=== PATIENT | male | born 1960 | race Caucasian/White ===

== ENCOUNTER 2017-11-10 11:54 | Emergency (ER) | payer OTHER ==
[2017-11-10 12:03] VITALS: TEMP 99.5
[2017-11-10 12:47] LABS: PLATELET COUNT 190 10^3/uL (150-400)
--- NOTE | 2017-11-10 12:53 | EDPHY ---
HPI/HX/ROS/PE/MDM Narrative: CHIEF COMPLAINT: Right leg redness and swelling HPI: The patient is a 56 y/o male with a history of gout complaining of swelling and redness in his lower right leg, onset , 3 days ago. He first noticed the swelling after taking off a knee brace at work. Initially, he thought this was a gout flare up so he took his gout medication, without relief of his symptoms. Within the last 24 hours the swelling has increased and his leg has now become red and painful. Yesterday he also had chills. No fever, chest pain, shortness of breath, abdominal pain, paresthesias, numbness, recent illness. REVIEW OF SYSTEMS: Aside from elements discussed in the HPI, a comprehensive 10-point review of systems was reviewed and is negative. PMH: Gout, right ankle surgery, left knee surgery with subsequent DVT, hernias SOCIAL HISTORY: Lives in [place], works for [employer], single PHYSICAL EXAM: General: Patient is alert, in no acute distress. ENT: Eyes are normal to inspection. ENT inspection normal. Neck: Normal inspection. Full range of motion. Respiratory: No respiratory distress. Breath sounds normal bilaterally. Cardiovascular: Regular rate and rhythm. Strong peripheral pulses. Normal cap refill. Abdomen: The abdomen is nontender to palpation. There are no peritoneal signs. There are normal bowel sounds. Back: Normal to inspection. No tenderness to palpation. Skin: Normal color. No rash. Warm and dry. Extremities: Right le+ edema from mid calf down with tenderness and erythema. Otherwise normal appearance. Full range of motion. Neuro: Oriented x3. Normal motor function. Normal sensory function. ED Course: 1315: Reviewed patient's right ankle x-ray; no fracture or dislocation. No hardware in place. 1345: Spoke with Dr. Guevara, radiologist, there is no DVT in the right leg US. 1gm IV Invanz administered as patient's symptoms are consistent with cellulitis. 1352: Reassessed patient and discussed imaging and laboratory findings. I have marked the area of cellulitis. He will need to return to the ED tomorrow to re- check the redness and swelling; and for a possible additional dose of antibiotics. Return precautions provided; patient is comfortable with this plan. MDM: This patient presents with signs and sx of RLE cellulitis. He declines admission to the hospital. US and XR are negative for signs of DVT, abscess, osteomyelitis, fracture or soft tissue gas. The patient is afebrile and hemodynamically stable. I will treat him with Invanz and Keflex and he agrees to return to the ED tomorrow for re-evaluation and possible repeat IV antibiotics if necessary. - Data Points Imaging Results: Imaging Impressions Ankle X-Ray 11/10/17 12:59 Impression: 1. No evidence of osteomyelitis or fracture. 2. 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 Imaging: Discussed imaging studies w/ at home independent call center agent Radiologist, I viewed and interpreted images myself Laboratory Results: Laboratory Results 11/10/17 12:35 11/10/17 12:35 11/10/17 11/10/17 12:35 12:35 WBC 14.13 10^3/uL H 10^3/uL (3.80-9.50) RBC 4.97 10^6/uL 10^6/uL (4.40-6.38) Hgb 15.8 g/dL g/dL (13.7-17.5) Hct 44.4 % % (40.0-51.0) MCV 89.3 fL fL (81.5-99.8) MCH 31.8 pg pg (27.9-34.1) MCHC 35.6 g/dL g/dL (32.4-36.7) RDW 12.0 % % (11.5-15.2) Plt Count 190 10^3/uL 10^3/uL (150-400) MPV 9.1 fL fL (8.7-11.7) Neut % (Auto) 82.0 % H % (39.3-74.2) Lymph % (Auto) 8.1 % L % (15.0-45.0) Hendricks % (Auto) 8.7 % % (4.5-13.0) Eos % (Auto) 0.1 % L % (0.6-7.6) Baso % (Auto) 0.4 % % (0.3-1.7) Nucleat RBC Rel Count 0.0 % % (0.0-0.2) Absolute Neuts (auto) 11.57 10^3/uL H 10^3/uL (1.70-6.50) Absolute Lymphs (auto) 1.15 10^3/uL 10^3/uL (1.00-3.00) Absolute Monos (auto) 1.23 10^3/uL H 10^3/uL (0.30-0.80) Absolute Eos (auto) 0.02 10^3/uL L 10^3/uL (0.03-0.40) Absolute Basos (auto) 0.06 10^3/uL 10^3/uL (0.02-0.10) Absolute Nucleated RBC 0.00 10^3/uL 10^3/uL (0-0.01) Immature Gran % 0.7 % % (0.0-1.1) Immature Gran # 0.10 10^3/uL 10^3/uL (0.00-0.10) Sodium 138 mEq/L mEq/L (135-145) Potassium 4.3 mEq/L mEq/L (3.5-5.2) Chloride 103 mEq/L mEq/L (97-110) Carbon Dioxide 20 mEq/l L mEq/l (22-31) Anion Gap 15 mEq/L mEq/L (8-16) BUN 26 mg/dL H mg/dL (7-23) Creatinine 0.8 mg/dL mg/dL (0.7-1.3) Estimated GFR > 60 Glucose 125 mg/dL H mg/dL (70-100) Calcium 9.0 mg/dL mg/dL (8.5-10.4) Medications Given: Discontinued Medications Ertapenem (Invanz) 1 gm IVP EDNOW ONE PRN Reason: Protocol Stop: 11/10/17 13:50 Last Admin: 11/10/17 13:57 Dose: 1 gm Morphine Sulfate (Morphine) 4 mg IVP EDNOW ONE Stop: 11/10/17 13:02 Last Admin: 11/10/17 13:11 Dose: 4 mg General Time Seen by Provider: 11/10/17 12:52 Initial Vital Signs: Initial Vital Signs Temperature (C) 37.5 C 11/10/17 12:00 Heart Rate 96 11/10/17 12:00 Respiratory Rate 18 11/10/17 12:00 Blood Pressure 116/79 11/10/17 12:00 O2 Sat (%) 95 11/10/17 12:00 O2 Delivery Mode Room Air Allergies/Adverse Reactions: ketorolac Allergy (Verified 11/19/15 11:35) levofloxacin Allergy (Verified 11/19/15 11:35) Home Medications: Medication Instructions Recorded Cephalexin [Keflex] 500 mg PO Q6H #28 cap 11/10/17 Colchicine 11/10/17 oxyCODONE/APAP 5/325 [Percocet 1 - 2 tab PO Q4H PRN #10 tab 11/10/17 5/325 (*)] Departure - Departure Disposition: Home, Routine, Self-Care Clinical Impression: Cellulitis Qualifiers: Site of cellulitis: extremity Site of cellulitis of extremity: lower extremity Laterality: right Qualified Code(s): L03.115 - Cellulitis of right lower limb Condition: Good Instructions: Cellulitis (ED) Additional Instructions: Take Keflex as prescribed. Take Percocet as prescribed for severe pain. Return to the Emergency Department immediately if the pain or redness worsens. Return to the Emergency Department tomorrow to recheck your leg and for a possible additional dose of antibiotics. Referrals: Martina Ortiz MD [[facility] Primary Care Provider] - As per Instructions [facility],. [Clinic] - As per Instructions Prescriptions: Cephalexin [Keflex] 500 mg PO Q6H #28 cap oxyCODONE/APAP 5/325 [Percocet 5/325 (*)] 1 - 2 tab PO Q4H PRN #10 tab PRN Reason: Pain, Severe Report Scribed for: Andrew Perdomo Report Scribed by: Sindhu Russo Date of Report: 11/10/17 Time of Report: 12:53 Physician Review and Approval Statement: Portions of this note were transcribed by an ED scribe. I personally performed the history, physical exam, and medical decision making; and confirm the accuracy of the information in the transcribed note.
[2017-11-10] MEDS ORDERED: ERTAPENEM 1 GM VIAL IVP ONE (13:49)
[2017-11-10 13:59] VITALS: BP 106/72; PULSE 93; RESP 16; O2SAT 97
== END 2017-11-10 15:02 | disposition home or self-care (01) ==
DX: L03.115 Cellulitis of right lower limb (principal)
CPT/HCPCS: 96374; J1335; J2270

== ENCOUNTER 2017-11-11 13:08 | Emergency (ER) | payer OTHER ==
--- NOTE | 2017-11-11 14:06 | EDPHY ---
H & P Time Seen by Provider: 11/11/17 13:55 HPI/ROS: CHIEF COMPLAINT: Recheck right lower extremity cellulitis HISTORY OF PRESENT ILLNESS: 56-year-old male history of gout, seen emergency department yesterday for erythema, edema to the right lower extremity had negative x-ray and ultrasound. He was treated with a dose of Invanz and started on oral Keflex told to return to the ER for recheck in 24 hr. He states that he is feeling significantly improved. The pain is more of an "annoyance" than significant pain. He is able to bear weight. He has been compliant with his Keflex. He denies fever chills. Denies flu-like symptoms. PHYSICAL EXAM (Prior to examination, patient consented to physical exam, hands were washed and my usual and customary physical exam procedures followed) 1) GENERAL: Well-developed, well-nourished, alert and oriented. Appears to be in no acute distress. Observed weight-bearing. 2) HEAD: Normocephalic 3) HEENT: sclera anicteric 4) LUNGS: Breathing comfortably. 5) MUSCULOSKELETAL: Right lower extremity: The extent of erythema at last emergency department visit was outlined and there has been significant decrease in this erythema. He has soft compartments with DP PT pulses present and brisk. No inguinal adenopathy. No lymphangitic streaking. No crepitus. Smoking Status: Never smoked Constitutional: Initial Vital Signs Temperature (C) 36.8 C 11/11/17 13:09 Heart Rate 68 11/11/17 13:09 Respiratory Rate 14 11/11/17 13:09 Blood Pressure 101/79 11/11/17 13:09 O2 Sat (%) 98 11/11/17 13:09 O2 Delivery Mode Room Air Allergies/Adverse Reactions: ketorolac Allergy (Verified 11/11/17 13:08) levofloxacin Allergy (Verified 11/11/17 13:08) Home Medications: Medication Instructions Recorded Cephalexin [Keflex] 500 mg PO Q6H #28 cap 11/10/17 Colchicine 11/10/17 oxyCODONE/APAP 5/325 [Percocet 1 - 2 tab PO Q4H PRN #10 tab 11/10/17 5/325 (*)] MDM/Departure - MDM ED Course/Re-evaluation: 2:05 p.m.: This patient is responding well to antibiotics. He has had significant decrease in his erythema, he is symptomatic we better as well. At this time I do not think that a repeat dose of IV antibiotics is definitively indicated. I recommend continue oral antibiotics. Recommend elevation. Recommend follow up in 2 days with his primary care provider at [facility]. He feels comfortable with this plan. Usual and customary wound precautions and instructions provided. Care of patient under supervision of primary supervising physician Dr Mcwilliams . - Depart Disposition: Home, Routine, Self-Care Clinical Impression: Cellulitis of right lower extremity Condition: Good Instructions: Cellulitis (ED) Additional Instructions: Return to the ER if you develop redness, swelling, discharge, warmth to the wound, red streaks going up your leg, or any other symptoms that concern you. Referrals: [facility] ,. [[facility] Groups for Call Sched] - 1-2 days without fail
[2017-11-11 14:39] VITALS: BP 112/78; PULSE 80; RESP 18; TEMP 98.6; O2SAT 95
== END 2017-11-11 14:39 | disposition home or self-care (01) ==
DX: L03.115 Cellulitis of right lower limb (principal)

== ENCOUNTER 2017-11-15 19:56 | Inpatient (IN) | payer SELFPAY ==
--- NOTE | 2017-11-15 20:17 | EDPHY ---
H & P Stated Complaint: cellulitis Time Seen by Provider: 11/15/17 20:10 - Personal History Current Tetanus/Diphtheria Vaccine: Yes Current Tetanus Diphtheria and Acellular Pertussis (TDAP): Yes - Medical/Surgical History Hx Asthma: No Hx Chronic Respiratory Disease: No Hx Diabetes: No Hx Cardiac Disease: No Hx Renal Disease: No Hx Cirrhosis: No Hx Alcoholism: No Hx HIV/AIDS: No Hx Splenectomy or Spleen Trauma: No Other PMH: cellulitis, DVT left leg, gout, Left knee surg, 2 previous hernia's - Social History Smoking Status: Never smoked Constitutional: Initial Vital Signs Temperature (C) 36.3 C 11/15/17 19:59 Heart Rate 89 11/15/17 19:59 Respiratory Rate 16 11/15/17 19:59 Blood Pressure 136/85 H 11/15/17 19:59 O2 Sat (%) 96 11/15/17 19:59 O2 Delivery Mode Room Air Allergies/Adverse Reactions: ketorolac Allergy (Verified 11/11/17 13:08) levofloxacin Allergy (Verified 11/11/17 13:08) Home Medications: Medication Instructions Recorded Cephalexin [Keflex] 500 mg PO Q6H #28 cap 11/10/17 Herbals/Supplements -Info Only 1 ea PO DAILY 11/15/17 Multivitamins [Multivitamin (*)] 1 each PO DAILY 11/15/17 Naproxen Sodium [Aleve 220 MG (*)] 220 mg PO DAILY PRN 11/15/17 [place]-3 Fatty Acids [Fish Oil 1000 1,000 mg PO DAILY 11/15/17 mg (*)] Medical Decision Making ED Course/Re-evaluation: CHIEF COMPLAINT: Right leg cellulitis HISTORY OF PRESENT ILLNESS: This patient is a 56 y/o male with history of gout presenting for evaluation of worsening right lower extremity cellulitis. He was evaluated Saturday, five days ago, for similar symptoms. US was negative for DVT. He was discharged with Keflex following treatment with IV antibiotics. On Saturday and Saturday, the patient was seeing some improvement. Yesterday, the erythema began to spread again, and today his right leg is very red, swollen and painful. He presents for evaluation and likely admission as he is concerned that he has failed outpatient therapy. No fever, chills, vomiting, diarrhea, weakness, urinary complaints, or other associated symptoms. Patient denies history of diabetes. No recent trauma to the area. REVIEW OF SYSTEMS: A 10 point review of systems was performed and is negative with the exception of the elements mentioned in the history of present illness. PHYSICAL EXAM: HR, BP, O2 Sat, RR. Temp noted General Appearance: Alert, well hydrated, appropriate, and non-toxic appearing. Head: Atraumatic without scalp tenderness or obvious injury Eyes: Pupils equal, round, reactive to light and accommodation, EOMI, no trauma , no injection. Nose: Atraumatic. Throat: There is no erythema or exudates, no lesions, normal tonsils, mucus membranes moist. Neck: Supple, nontender, no lymphadenopathy. Respiratory: No retractions, no distress, no wheezes, and no accessory muscle use. Lungs are clear to auscultation bilaterally. Cardiovascular: Regular rate and rhythm, no murmurs, rubs, or gallops. Bilateral carotid, radial, dorsalis pedis, and posterior tibial pulses intact. Good capillary refill all extremities. Gastrointestinal: Abdomen is soft, nontender, non-distended, no masses, no rebound, no guarding, no peritoneal signs. Musculoskeletal: Swelling, fluctuance, and erythema to right lateral ankle. 2+ edema from mid calf down with tenderness and erythema. Normal active ROM of all extremities.. Neurological: Alert, appropriate, and interactive. The patient has normal DTRs and non-focal cranial nerves, motor, sensory, and cerebellar exam. Skin: No rashes, good turgor, no nodules on palpation. Past medical history: Cellulitis, DVT left leg, Gout. Past surgical history: Left knee surgery. Two previous hernias Family history: Noncontributory. Social history: Lives in [place], works for [employer], single DIFFERENTIAL DIAGNOSIS: Includes but not limited to cellulitis, DVT, abscess, osteomyelitis, fracture or soft tissue gas. MEDICAL DECISION MAKIN56 y/o male presents with cellulitic right leg. He is afebrile. Patient had been evaluated twice in the past week for similar symptoms, given IV antibiotics and placed on Keflex. He has been compliant with these medications, but symptoms have worsened. Patient failed outpatient treatment. Plan to admit for cellulitis. Plan for labs including CBC, chemistries. Plan to administer 1gm IV Vancomycin. 20:22 Dr. Gómez accepts admission for cellulitis. - Data Points Medications Given: Vancomycin HCl 1 gm/ Sodium (Chloride) 250 mls @ 250 mls/hr IV EDNOW ONE Stop: 11/15/17 21:59 Last Admin: 11/15/17 20:46 Dose: 250 mls Departure - Departure Disposition: [facility] Inpatient Acute Clinical Impression: Cellulitis Qualifiers: Site of cellulitis: extremity Site of cellulitis of extremity: lower extremity Laterality: right Qualified Code(s): L03.115 - Cellulitis of right lower limb Condition: Fair
[2017-11-15] MEDS ORDERED: VANCOMYCIN HCL/NORMAL SALINE 250 ML IV ONE (20:23)
[2017-11-15 20:41] LABS: PLATELET COUNT 347 10^3/uL (150-400)
[2017-11-15] MEDS ORDERED: VANCOMYCIN 1 GM in NS 250 ML IV ONE (21:00)
[2017-11-15] MEDS ORDERED: ONDANSETRON 4 MG/2 ML VIAL IVP PRN (21:03)
[2017-11-15] MEDS ORDERED: ONDANSETRON DISINTEGRATING 4 MG TAB PO PRN (21:03)
[2017-11-15] MEDS: ACETAMINOPHEN 325 MG TAB PO PRN (22:02)
[2017-11-15] MEDS: oxyCODONE IR 5 MG TAB PO PRN (22:03)
--- NOTE | 2017-11-15 22:12 | GHP ---
[f rep st] HISTORY AND PHYSICAL DATE OF ADMISSION: 11/15/2017 CHIEF COMPLAINT: Cellulitis. HISTORY OF PRESENT ILLNESS: This is a 56-year-old man who was seen in the ED a few days ago for the same. He is given a dose of vancomycin and sent home on Keflex. He thought at first that his infect ion was doing better. However, it got much worse today. It is very painful. He noticed some pus co herber out of it today. He has had an infection like this before in his elbow. He tells me that teodoro morales was never identified. PAST MEDICAL/SURGICAL HISTORY: Gout. MEDICATIONS: No medications. ALLERGIES: Ketorolac and Levofloxacin. FAMILY HISTORY: Remarkable for alcoholism. SOCIAL HISTORY: He quit drinking 14 years ago. Quit smoking 10 years ago. REVIEW OF SYSTEMS: A 10-point review of systems is conducted and is negative except per HPI. PHYSICAL EXAMINATION: VITAL SIGNS: Blood pressure 126/80, heart rate 76, respiratory rate 16, satur ating 98% on room air. Temperature is 36.8. GENERAL: The patient is a pleasant man who is resting comfortably, in no acute distress. HEENT: Normocephalic, atraumatic. CARDIOVASCULAR: Regular rate and rhythm. No murmurs, rubs, or gallops. PULMONARY: Lungs clear to auscultation bilaterally. AB DOMEN: Soft, nontender, nondistended. SKIN: No rash. : No Sheriff. NEUROLOGIC: Alert and orien gabriel x3. He is moving all extremities. PSYCHIATRIC: Normal mood and affect. EXTREMITIES: Right lo wer extremity has significant erythema. It is warm, quite tender to palpation. I do not really appr eciate any areas of fluctuance. There are a few mild scabs. There is no streaking beyond the mid sh in. LYMPHS: He has no inguinal lymphadenopathy. LABORATORY: White count is 10.4. Basic metabolic panel shows a bicarb of 20. DATA: 1. I discussed with Dr. Araujo. We will admit to med/surg. 2. I reviewed his extremity venous study. This is negative for DVT. 3. I reviewed his ankle x-ray. This shows no evidence of osteomyelitis or fracture. He does have o steoarthritis. IMPRESSION PLAN: 1. Cellulitis: High risk. Needs inpatient admission. Given the purulence he saw, we will treat wi vancomycin. Blood cultures were not sent prior to antibiotics. Watch him closely. Clinically, p otentially an abscess will declare itself when the erythema and edema resolve. 2. Gout: No acute flare. /[id number]/MODL
--- NOTE | 2017-11-16 01:52 | PDMN ---
Medical Necessity Medical necessity: C/M review: Patient meeets INPT criteria undr MCG M-70 Cellulitis: Acute and persistent worsening right lower extremity cellulitis - erythema, pain, patient reports pus coming out of RLE requiring ongoing IV Vancomycin Q 12 hrs., comorbid 11/11/2017 ED visit for RLE cellulitis treated with IV Vancomycin in ED, outpt. oral Keflex, failed outpt. therapy, history of gout. MD anticipates > 2 MN LOS for ongoing med nec for eval and TX of above.
[2017-11-16] MEDS: oxyCODONE IR 5 MG TAB PO PRN ×3 (04:54→21:55)
[2017-11-16 05:23] LABS: PLATELET COUNT 293 10^3/uL (150-400)
[2017-11-16] MEDS: VANCOMYCIN 1.25 GM in NS 250 ML IV SCH ×2 (06:26→19:36)
--- NOTE | 2017-11-16 10:13 | ASMTCMCOM ---
CM Note CM Note Notes: Patient admitted after failing outpatient treatment for RLE cellulitis. He was seen in the [facility] ED twice last week and given both IV and oral antibiotics. 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 I do not anticipate any discharge needs, but Case Management available if any arise. Date Signed: 11/16/2017 10:12 AM Electronically Signed By:Faith Galicia RN
[2017-11-16] MEDS: ACETAMINOPHEN 325 MG TAB PO PRN ×2 (12:43→21:55)
--- NOTE | 2017-11-16 16:14 | HOSPPROG ---
Hospitalist Progress Note Assessment/Plan: 56 yo M with cellulitis failing OP management # RLE cellulitis: started on IV vanco with minimal improvement overnight, has failed op management that included IV and oral abx through ER. Ankle XR w/o clear osteo on personal review, US showing no DVT. Ankle edema remains significant with area of "bogginess" concerning for underlying fluid collection though lack of significant ttp or erythema argues against abscess--possibly just dependent edema. Will monitor, will ask ID to consult, low threshold for further imaging if not improving # hx of gout: no acute flare # leukocytosis: in setting of above, resolved # IP status Patient new to my care. Old records reviewed/summarized as above. Subjective: no acute overnight events, patient states swelling improved so long as he is in bed, but just as bad as before when standing Objective: Vital Signs Temp Pulse Resp BP Pulse Ox 36.4 C 58 L 16 116/74 96 11/16/17 07:08 11/16/17 07:08 11/16/17 07:08 11/16/17 07:08 11/16/17 07:08 Laboratory Results 11/16/17 04:40 11/16/17 04:40 11/15/17 11/16/17 11/17/17 05:59 05:59 05:59 Intake Total 500 Output Total 350 Balance 150 awake alert nad anicteric op clear rrr no mrg cta b soft nt nd rle with erythema to just below knee, significant edema in foot/ankle especially lateral malleolar region warm dry well perfused oriented appropriate ICD10 Worksheet Patient Problems: Problems Problem Status Onset Cellulitis Acute
[2017-11-17] MEDS: oxyCODONE IR 5 MG TAB PO PRN ×2 (06:01→22:01)
[2017-11-17] MEDS: ACETAMINOPHEN 325 MG TAB PO PRN ×3 (06:02→22:01)
[2017-11-17] MEDS: VANCOMYCIN 1.25 GM in NS 250 ML IV SCH (07:27)
[2017-11-17] MEDS ORDERED: ceFAZolin 2 GM/DEXTROSE 100 ML IV SCH (14:00)
--- NOTE | 2017-11-17 14:53 | GCON ---
[f rep st] CONSULTATION DATE OF CONSULTATION: 11/17/2017 REQUESTING PHYSICIAN: Marjan Becker MD. REASON FOR CONSULTATION: Right lower extremity cellulitis. HISTORY OF PRESENT ILLNESS: The patient is a 56-year-old male with a past medical history of gout, w ho I am asked to see in consultation for right lower extremity cellulitis. The patient describes dev eloping erythema and tenderness over the anterior spencer approximately 10 days ago. 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 He does not recall any preceding injury to the area. He subs equently was seen in the emergency department on 11/10/2017 at which point in time he had an ultrasou nd performed which showed no evidence of DVT. He was given 1 g of ertapenem and discharged home for continued therapy with cephalexin. The following day, he was seen in the ER for a recheck at which p oint in time, it was recommended that he continue his oral antibiotic therapy. Despite continued cep halexin, he felt that his symptoms were worsening, prompting return to the hospital on 11/15/2017. A t that point in time he was admitted for right lower extremity cellulitis. He admission history and physical describes that he had purulent discharge from the lateral aspect of his lower leg; when I qu estioned him about this today, he said this was a clear yellow liquid rather than sounding as if comp atible with pus. The patient has been started on vancomycin and has had decrease in swelling over th e anterior spencer, but has noted persistent and prominent swelling of the right ankle. He has signific ant tenderness with weightbearing. He describes having subjective fever and chills initially, but th yonatan have resolved. He has not experienced nausea, vomiting or diarrhea. No past medical history of MRSA or skin and soft tissue infection. He did have a prior surgery in the right ankle many years ag o and does not have any indwelling hardware. Given the above findings, I am now asked to assist in h is ongoing management. PAST MEDICAL HISTORY: Gout. PAST SURGICAL HISTORY: Right ankle surgery, hernia repair. CURRENT MEDICATIONS: Vancomycin 1.25 g IV q.12 hours, morphine as needed, Oxy IR as needed. ALLERGIES: Levofloxacin or Ketoralac associated with anaphylaxis; both of these had been administere d around the time of an anaphylactic reaction, although patient feels this is most likely from the le vofloxacin. Of note, he is able to tolerate indomethacin and ibuprofen without difficulty. SOCIAL HISTORY: Patient quit smoking and drinking alcohol many years ago. No drug use. 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 No recent travel. There are pet cats at home. FAMILY HISTORY: Diabetes mellitus, skin cancer. REVIEW OF SYSTEMS: Outside that noted in the HPI, remainder of a 10-system review is unremarkable. PHYSICAL EXAMINATION: VITAL SIGNS: Temperature 36.5, heart rate 70, respiratory rate 19, blood pres sure 109/73, oxygen saturation 96% on room air. GENERAL: Patient is well-nourished, well-developed, in no acute distress. He appears nontoxic. HEENT: There is no scleral icterus, conjunctival injec tion, or conjunctival petechiae. Oropharynx is clear without lesions. Mucous membranes are moist. There is no nasal discharge. There is no tenderness over the sinuses. NECK: Supple without palpabl e lymphadenopathy or thyromegaly. CHEST: Clear to auscultation bilaterally without adventitious blank nds. Respiratory effort is normal. CARDIOVASCULAR: Regular rate and rhythm without murmurs, gallop s, or rubs. ABDOMEN: Soft, nontender, nondistended. There is no palpable organomegaly. Bowel soun ds are present. MUSCULOSKELETAL: The right lower extremity shows erythema with wrinkling of skin ov er the anterior spencer with some small hemorrhagic foci; there is some desquamation of skin beginning m ore medially without any expressible drainage or palpable fluctuance. The right lateral malleolar re gion has significant pitting edema which is less prominent over the medial malleolar area. There is no significant irritability with range of motion of the joint. SKIN: See musculoskeletal exam. The re is no tenia pedis present. No stigmata of endocarditis. The skin is warm and dry to touch. NEUR OLOGIC: Patient is alert and interacts appropriately with examiner. Cranial nerves 2-12 are grossly intact. Sensation is grossly intact. Muscle tone and bulk are normal. LYMPHATICS: No cervical or supraclavicular nodes. There is no lymphangitis or adenopathy in the right inguinal area. LABORATORY DATA: White blood cell count 9.1, hematocrit 37.6, platelets 293, neutrophils 39%, lympho cytes 37% (had 36% bands yesterday), serum creatinine 0.6, vancomycin trough 9.8. No culture data is available. Ultrasound of the lower extremity on 11/10/2017 shows no evidence of DVT. Ankle x-ray o n 11/10/2017 shows no fracture. IMPRESSION: 1. Right lower extremity cellulitis: Appearance is most suggestive of beta-hemolytic streptococci a s etiology. Description of purulence with further clarification sounds is if serous fluid had draine d rather than purulent material. No evidence of purulence or abscess on exam. Given this finding, w ill change vancomycin to cefazolin. Continue lower extremity elevation. 2. Ankle edema: This is either sympathetic to patient's cellulitis or may have element of superimpo sed gout as an explanation although ankle is not irritable to palpation. Do not think this represent s abscess or septic arthritis. RECOMMENDATIONS: 1. Ancef 2 g IV q.8 hours. 2. Discontinue vancomycin. 3. Continue leg elevation. 4. Indomethacin 50 mg orally 3 times per day. Thank you for this consultation. We will continue to follow the patient with you. /[id number]/MODL
[2017-11-17] MEDS: INDOMETHACIN 25 MG CAP PO SCH (17:17)
--- NOTE | 2017-11-17 19:11 | HOSPPROG ---
Hospitalist Progress Note Assessment/Plan: 56 yo M with cellulitis failing OP management # RLE cellulitis:appreciate ID consult, transitioning to ancef given appearance most c/w B-hemolytic strep. Ankle remains very edematous and boggy, perhaps related to gout as per Id however not very TTP # hx of gout: as above, ? if ankle swelling related to gout, starting indocin # leukocytosis: in setting of above, resolved # IP status Care plan reviewed with Dr. Noble as above. Subjective: no signficant overnight events, patient notes his leg feels a bit better, looks less red, no other issues overnight Objective: Vital Signs Temp Pulse Resp BP Pulse Ox 36.5 C 80 16 110/82 H 93 11/17/17 16:00 11/17/17 16:00 11/17/17 16:00 11/17/17 16:00 11/17/17 16:00 Laboratory Results 11/16/17 04:40 11/16/17 04:40 11/16/17 11/17/17 11/18/17 05:59 05:59 05:59 Intake Total 500 2250 1780 Output Total 350 400 Balance 150 1850 1780 awake alert nad anicteric op clear rrr no mrg cta b soft nt nd rle with erythema to just below knee, significant edema in foot/ankle especially lateral malleolar region warm dry well perfused oriented appropriate - Time Spent With Patient Time Spent with Patient: greater than 35 minutes Time Spent with Patient: Greater than 35 minutes spent on this patients care, greater than 50% of time spent counseling, educating, and coordinating care regarding the above mentioned plan. ICD10 Worksheet Patient Problems: Problems Problem Status Onset Cellulitis Acute
[2017-11-17] MEDS: ceFAZolin 2 GM/SWFI 2 GM/20 ML SYR IVP SCH (21:57)
[2017-11-18] MEDS: ceFAZolin 2 GM/SWFI 2 GM/20 ML SYR IVP SCH ×3 (05:06→21:14)
[2017-11-18] MEDS: ACETAMINOPHEN 325 MG TAB PO PRN ×3 (05:12→18:04)
[2017-11-18] MEDS: oxyCODONE IR 5 MG TAB PO PRN ×2 (05:13→18:05)
[2017-11-18] MEDS: SENNOSIDES 1 TAB PO SCH ×3 (08:56→21:17)
[2017-11-18] MEDS: INDOMETHACIN 25 MG CAP PO SCH ×3 (08:56→18:01)
--- NOTE | 2017-11-18 14:00 | PCMIDPN ---
Assessment/Plan: Assessment: Right lower extremity cellulitis. Significant improvement over the last 24 hours. Patient was changed to IV cefazolin yesterday. No cultures pending. I do not think that the ankle joint is involved directly. Patient has some continued swelling as well as some deep red rubrum in the right lower extremity from the distal spencer down through the foot. Plan: 1. Continue IV cefazolin. 2. Anticipate another 24-48 hours of IV need prior to oral antibiotic change. 11/18/17 13:57 11/18/17 13:57 Subjective: Patient is sitting up in his chair. He states that he has some various aches and pains from being in bed for the last few days. Otherwise he notes that his right lower extremity is improved. Decreased erythema as well as edema. No fevers or chills. Objective: Cefazolin # 1 Vital Signs Temp Pulse Resp BP Pulse Ox 36.6 C 64 16 107/65 92 11/18/17 08:00 11/18/17 08:00 11/18/17 08:00 11/18/17 08:00 11/18/17 08:00 Laboratory Results 11/16/17 04:40 11/16/17 04:40 11/17/17 11/18/17 11/19/17 05:59 05:59 05:59 Intake Total 2250 2270 Output Total 400 300 Balance 1850 1969 - Physical Exam General Appearance: WD/WN, alert, no apparent distress, non-toxic Respiratory: lungs clear, normal breath sounds Cardiac/Chest: regular rate, rhythm, No tachycardia Extremities: swelling (Decreased right lower extremity), erythema (Decreased), No non-tender, No normal inspection Skin: normal color, warm/dry, No rash Neuro/Psych: alert, normal mood/affect, oriented x 3 ICD10 Worksheet Patient Problems: Problems Problem Status Onset Cellulitis Acute
--- NOTE | 2017-11-18 15:24 | HOSPPROG ---
Hospitalist Progress Note Assessment/Plan: 56 yo M with cellulitis failing OP management # RLE cellulitis:appreciate ID consult, has been treated with vanc then ancef with ongoing improvement. Plan to transition to keflex today for likely discharge in am or later today. # gout:with evidence of acute flare, continue indocin # leukocytosis: in setting of above, resolved # IP status Care plan reviewed with Dr. Self as above. Subjective: patient initially feeling he wants to go home then concnerned his leg is more red and swollen when he stands, no fevers, no other acute issues Objective: Vital Signs Temp Pulse Resp BP Pulse Ox 36.6 C 64 16 107/65 92 11/18/17 08:00 11/18/17 08:00 11/18/17 08:00 11/18/17 08:00 11/18/17 08:00 Laboratory Results 11/16/17 04:40 11/16/17 04:40 11/17/17 11/18/17 11/19/17 05:59 05:59 05:59 Intake Total 2250 2270 Output Total 400 300 Balance 1850 1970 ICD10 Worksheet Patient Problems: Problems Problem Status Onset Cellulitis Acute
[2017-11-19] MEDS: oxyCODONE IR 5 MG TAB PO PRN (03:28)
[2017-11-19] MEDS: ceFAZolin 2 GM/SWFI 2 GM/20 ML SYR IVP SCH ×2 (05:40→14:09)
[2017-11-19] MEDS: INDOMETHACIN 25 MG CAP PO SCH ×3 (09:11→18:27)
[2017-11-19] MEDS: SENNOSIDES 1 TAB PO SCH ×2 (09:11→23:09)
--- NOTE | 2017-11-19 11:59 | HOSPPROG ---
Hospitalist Progress Note Assessment/Plan: 56 yo M with cellulitis failing OP management # RLE cellulitis:appreciate ID consult, transitioning to ancef given appearance most c/w B-hemolytic strep. Ankle remains very edematous and boggy, perhaps related to gout as per Id however not very TTP # hx of gout: as above, ? if ankle swelling related to gout, starting indocin # leukocytosis: in setting of above, resolved # IP status Care plan reviewed with Dr. Noble as above. Objective: Vital Signs Temp Pulse Resp BP Pulse Ox 36.4 C 75 18 111/70 99 11/19/17 07:42 11/19/17 07:42 11/19/17 07:42 11/19/17 07:42 11/19/17 07:42 Laboratory Results 11/16/17 04:40 11/16/17 04:40 11/18/17 11/19/17 11/20/17 05:59 05:59 05:59 Intake Total 0 2054 40 Output Total 300 1 350 Balance 1970 2053 - awake alert nad anicteric op clear rrr no mrg cta b soft nt nd rle with erythema to just below knee, significant edema in foot/ankle especially lateral malleolar region warm dry well perfused oriented appropriate ICD10 Worksheet Patient Problems: Problems Problem Status Onset Cellulitis Acute
--- NOTE | 2017-11-19 14:19 | PCMIDPN ---
Assessment/Plan: Assessment/Plan: 1. RLE cellulitis:- -Marked improvement -currently on ancef therapy -Can exchange architect to oral keflex today. - continue to elevate Legs -labs from 11/16/17 reviewed - care coordinated with RN. 2. Possible gout right great toe -on indocin -management per hospitalist team. Meds ancef 2g q8- 11/17/17 Subjective: afebrile. c/o right great toe pain now. erythema has continued to improve and is most noticeable when leg elevated. swelling better overall as well. also has some left knee pain. denies sob, or diarrhea. Objective: Vital Signs Temp Pulse Resp BP Pulse Ox 36.4 C 75 18 111/70 99 11/19/17 07:42 11/19/17 07:42 11/19/17 07:42 11/19/17 07:42 11/19/17 07:42 Laboratory Results 11/16/17 04:40 11/16/17 04:40 11/18/17 11/19/17 11/20/17 05:59 05:59 05:59 Intake Total 0 2054 40 Output Total 300 1 350 Balance 1969 - Physical Exam General Appearance: alert, no apparent distress Respiratory: lungs clear Cardiac/Chest: regular rate, rhythm Extremities: swelling (RLE swelling improving. mild new swelling left knee.no erythema. ) Abdomen: normal bowel sounds, non-tender, soft, No distended Skin: erythema (RLE singificnat improvement in erythema compared to notes reviewed and pictures patient showed me. swelilng is better also. new mild erythema on right great toe. tender to touch) ICD10 Worksheet Patient Problems: Problems Problem Status Onset Cellulitis Acute
--- NOTE | 2017-11-19 16:59 | ASMTCMCOM ---
CM Note CM Note Notes: Anticipate pt will d/c tomorrow on oral Keflex. No CM d/c needs identified at this time. CM available for changes/needs. Date Signed: 11/19/2017 04:59 PM Electronically Signed By:ANANT Cowan
[2017-11-19] MEDS: CEPHALEXIN 500 MG CAP PO SCH ×2 (18:27→23:17)
[2017-11-19] MEDS: ACETAMINOPHEN 325 MG TAB PO PRN (23:16)
[2017-11-20] MEDS: CEPHALEXIN 500 MG CAP PO SCH ×2 (06:12→13:08)
[2017-11-20 09:36] VITALS: BP 100/73; PULSE 93; RESP 12; TEMP 98.2; O2SAT 96
[2017-11-20] MEDS: SENNOSIDES 1 TAB PO SCH (09:41)
[2017-11-20] MEDS: ACETAMINOPHEN 325 MG TAB PO PRN (09:41)
[2017-11-20] MEDS: INDOMETHACIN 25 MG CAP PO SCH ×2 (09:41→13:08)
--- NOTE | 2017-11-20 12:13 | PDDCSUM ---
Discharge Summary Discharge Summary: Dates of service 11/15-11/20/17 Consultations: ID Procedures: none Hospital course by problem: # RLE cellulitis: has continued to improve significantly, initially on vanc but transitioned to ancef and will dc on keflex. Will f/u with PCP/ # gout with acute flare: over the last 2 days clear that gout has also flared up in the setting of above. Continue indocin and will do a three day course of prednisone for significant swelling # leukocytosis: in setting of above, resolved dc home f/u with PCP > 35 min spent in dc of patient more than half in coordination of care
== END 2017-11-20 14:28 | disposition home or self-care (01) | DRG 603 ==
LOC: OBSVTOIN 20:22 → F3N 21:45
PROVIDERS: ADMIT Student in an Organized Health Care Education/Training Program; ATTEND Internal Medicine
DX: L03.115 Cellulitis of right lower limb (principal); M10.9 Gout, unspecified
CPT/HCPCS: 96365; J0690; J2270; J3370

== ENCOUNTER 2018-07-31 09:40 | Emergency (ER) | payer OTHER ==
[2018-07-31] MEDS ORDERED: LORazepam 2 MG/ML INJ ONE (09:55)
[2018-07-31] MEDS ORDERED: LORazepam 2 MG/ML INJ IVP ONE (10:00)
[2018-07-31] MEDS ORDERED: NS 1,000 ML IV ONE (10:03)
--- NOTE | 2018-07-31 10:04 | EDPHY ---
H & P Stated Complaint: Lightheaded/dizzy Time Seen by Provider: 07/31/18 09:54 HPI/ROS: CHIEF COMPLAINT: Dizziness HISTORY OF PRESENT ILLNESS: 57-year-old male presents with acute onset of dizziness. He was driving his car just prior to arrival, when he had acute onset of dizziness, associated with palpitations, anxiety and shortness of breath. Continues to feel quite anxious and shortness of breath. Similar prior episode with allergic reaction to antibiotics. Not on medications currently. No chest pain, recent illness or fever. REVIEW OF SYSTEMS: complete 10 point ROS reviewed and is negative except for the noted elements in the HPI - Personal History Current Tetanus/Diphtheria Vaccine: Yes - Medical/Surgical History Hx Asthma: No Hx Chronic Respiratory Disease: No Hx Diabetes: No Hx Cardiac Disease: No Hx Renal Disease: No Hx Cirrhosis: No Hx Alcoholism: No Hx HIV/AIDS: No Hx Splenectomy or Spleen Trauma: No Other PMH: cellulitis, DVT left leg, gout, Left knee surg, 2 previous hernia's - Social History Smoking Status: Former smoker Alcohol Use: Occasionally Drug Use: None - Physical Exam Exam: General Appearance: Alert, appears uncomfortable, shaking Eyes: Pupils equal and round, no conjunctival pallor or injection ENT, Mouth: Mucous membranes moist Neck: Normal inspection Respiratory: Lungs are clear to auscultation Cardiovascular: Regular tachycardia Gastrointestinal: Abdomen is soft and nontender Neurological: A&O, nonfocal exam Skin: Warm and dry, no diaphoresis Extremities: Nontender, no pedal edema Psychiatric: Anxious Constitutional: Initial Vital Signs Heart Rate 111 H 07/31/18 09:42 Respiratory Rate 28 H 07/31/18 09:42 Blood Pressure 146/95 H 07/31/18 09:42 O2 Sat (%) 97 07/31/18 09:42 O2 Delivery Mode Room Air Allergies/Adverse Reactions: ketorolac Allergy (Verified 07/31/18 09:44) levofloxacin Allergy (Verified 07/31/18 09:44) Home Medications: Medication Instructions Recorded Herbals/Supplements -Info Only 1 ea PO DAILY 11/15/17 Multivitamins [Multivitamin (*)] 1 each PO DAILY 11/15/17 Junction-3 Fatty Acids [Fish Oil 1000 1,000 mg PO DAILY 11/15/17 mg (*)] Sennosides [Senokot] 1 tab PO BID tab 11/19/17 Cephalexin 500 mg PO Q6H #28 tablet 11/20/17 Indomethacin [Indocin 25 mg (*)] 50 mg PO TID #30 cap 11/20/17 oxyCODONE IR [Oxycodone Ir (*)] 5 - 10 mg PO Q6H PRN #20 tab 11/20/17 predniSONE 40 mg PO DAILY #6 tab 11/20/17 Medical Decision Making - Diagnostics EKG Interpretation: EKG interpreted by me reveals sinus tachycardia, rate 109, poor R-wave progression, significant artifact. Interpretation: Abnormal EKG Imaging Results: Imaging Impressions Chest X-Ray 07/31/18 09:59 Impression: 1. Poor inspiration with mild compressive changes at the lung bases. 2. Mild prominence of the pulmonary vasculature centrally. Consider mild fluid overload. 3. Stable mild anterior wedging of T6 and T8 segments Imaging: I viewed and interpreted images myself ED Course/Re-evaluation: This patient presents with acute onset of shortness of breath and dizziness. Stat EKG reveals sinus tachycardia, without evidence of ischemia. He is tachycardic, but other vital signs are normal. Ativan 0.5 mg IV given. 10:15 a.m.-now admits to heavy alcohol use. Drank a pt of vodka and several beers yesterday. Also took an oxycodone yesterday. 1130am: Asymptomatic, ready for discharge home. The laboratory studies, EKG and chest x-ray are unremarkable. Episode today of unclear etiology, possibly related to anxiety and a panic attack. No evidence of acute cardiopulmonary problem. Specifically there is no evidence of acute coronary syndrome, with atypical symptoms, no risk factors and normal troponin. I do not feel that further ED evaluation is indicated at this time. Warning signs discussed with the patient. Will follow up with PCP regarding alcoholism. Differential Diagnosis: Differential diagnosis includes does not limited to pulmonary embolism, pneumothorax, pneumonia, acute coronary syndrome, alcohol withdrawal. - Data Points Laboratory Results: Laboratory Results 07/31/18 09:58 07/31/18 09:58 07/31/18 07/31/18 07/31/18 10:03 09:58 09:58 WBC RBC Hgb Hct MCV MCH MCHC RDW Plt Count MPV Neut % (Auto) Lymph % (Auto) [place] % (Auto) Eos % (Auto) Baso % (Auto) Nucleat RBC Rel Count Absolute Neuts (auto) Absolute Lymphs (auto) Absolute Monos (auto) Absolute Eos (auto) Absolute Basos (auto) Absolute Nucleated RBC Immature Gran % Immature Gran # D-Dimer Sodium 139 mEq/L mEq/L (135-145) Potassium 4.0 mEq/L mEq/L (3.3-5.0) Chloride 112 mEq/L H mEq/L (97-110) Carbon Dioxide 14 mEq/l L mEq/l (22-31) Anion Gap 13 mEq/L mEq/L (6-14) BUN 19 mg/dL mg/dL (7-23) Creatinine 0.8 mg/dL mg/dL (0.7-1.3) Estimated GFR > 60 Glucose 108 mg/dL H mg/dL (70-100) Calcium 10.0 mg/dL mg/dL (8.5-10.4) Total Bilirubin 0.9 mg/dL mg/dL (0.1-1.4) Conjugated Bilirubin 0.4 mg/dL mg/dL (0.0-0.5) Unconjugated Bilirubin 0.5 mg/dL mg/dL (0.0-1.1) AST 42 IU/L IU/L (17-59) ALT 40 IU/L IU/L (21-72) Alkaline Phosphatase 86 IU/L IU/L (38-126) POC Troponin I 0.00 ng/mL ng/mL (0.00-0.08) NT-Pro-B Natriuret Pep 21 pg/mL pg/mL (0-125) Total Protein 8.2 g/dL g/dL (6.3-8.2) Albumin 4.8 g/dL g/dL (3.5-5.0) Ethyl Alcohol < 10 mg/dL mg/dL (0-10) 07/31/18 07/31/18 09:58 09:58 WBC 10.00 10^3/uL H 10^3/uL (3.80-9.50) RBC 5.37 10^6/uL 10^6/uL (4.40-6.38) Hgb 17.0 g/dL g/dL (13.7-17.5) Hct 47.1 % % (40.0-51.0) MCV 87.7 fL fL (81.5-99.8) MCH 31.7 pg pg (27.9-34.1) MCHC 36.1 g/dL g/dL (32.4-36.7) RDW 11.8 % % (11.5-15.2) Plt Count 257 10^3/uL 10^3/uL (150-400) MPV 8.8 fL fL (8.7-11.7) Neut % (Auto) 71.2 % % (39.3-74.2) Lymph % (Auto) 13.3 % L % (15.0-45.0) [place] % (Auto) 13.0 % % (4.5-13.0) Eos % (Auto) 0.7 % % (0.6-7.6) Baso % (Auto) 0.6 % % (0.3-1.7) Nucleat RBC Rel Count 0.0 % % (0.0-0.2) Absolute Neuts (auto) 7.12 10^3/uL H 10^3/uL (1.70-6.50) Absolute Lymphs (auto) 1.33 10^3/uL 10^3/uL (1.00-3.00) Absolute Monos (auto) 1.30 10^3/uL H 10^3/uL (0.30-0.80) Absolute Eos (auto) 0.07 10^3/uL 10^3/uL (0.03-0.40) Absolute Basos (auto) 0.06 10^3/uL 10^3/uL (0.02-0.10) Absolute Nucleated RBC 0.00 10^3/uL 10^3/uL (0-0.01) Immature Gran % 1.2 % H % (0.0-1.1) Immature Gran # 0.12 10^3/uL H 10^3/uL (0.00-0.10) D-Dimer < 0.27 ug/mLFEU ug/mLFEU (0.00-0.50) Sodium Potassium Chloride Carbon Dioxide Anion Gap BUN Creatinine Estimated GFR Glucose Calcium Total Bilirubin Conjugated Bilirubin Unconjugated Bilirubin AST ALT Alkaline Phosphatase POC Troponin I NT-Pro-B Natriuret Pep Total Protein Albumin Ethyl Alcohol Medications Given: Discontinued Medications Sodium Chloride (Ns) 1,000 mls @ 0 mls/hr IV EDNOW ONE; Wide Open PRN Reason: Protocol Stop: 07/31/18 10:04 Last Admin: 07/31/18 10:03 Dose: 1,000 mls Lorazepam (Ativan Injection) 0.5 mg IVP EDNOW ONE Stop: 07/31/18 10:01 Last Admin: 07/31/18 10:01 Dose: 0.5 mg Point of Care Test Results: Chemistry 07/31/18 10:03 POC Troponin I 0.00 ng/mL ng/mL (0.00-0.08) Departure - Departure Disposition: Home, Routine, Self-Care Clinical Impression: Dizziness Condition: Good Instructions: Lightheadedness (ED) Additional Instructions: Return for recurrent symptoms or any concerns. Avoid alcohol and drug use. Referrals: Millie Copeland MD [[facility] Primary Care Provider] - As per Instructions (Call to make an appointment.)
[2018-07-31 10:15] LABS: PLATELET COUNT 257 10^3/uL (150-400)
[2018-07-31 11:22] VITALS: BP 141/90
--- NOTE | 2018-07-31 15:08 | CPEKG ---
Test Reason : OPEN Blood Pressure : / mmHG Vent. Rate : 109 BPM Atrial Rate : 106 BPM P-R Int : 166 ms QRS Dur : 093 ms QT Int : 339 ms P-R-T Axes : 041 -15 -24 degrees QTc Int : 457 ms Sinus tachycardia Borderline left axis deviation Low voltage, precordial leads Consider anterior infarct Borderline T abnormalities, inferior leads Confirmed by Katheryn Esqueda ([id number]) on 07/31/2018 3:07:56 PM Referred By: Confirmed By:Katheryn Esqueda
== END 2018-07-31 11:56 | disposition home or self-care (01) ==
DX: R42 Dizziness and giddiness (principal); E86.9 Volume depletion, unspecified; Z86.718 Personal history of other venous thrombosis and embolism
CPT/HCPCS: 84484-PO; 96374; G0480; J2060